=== PATIENT | female | born 1955 | race Caucasian/White ===

== ENCOUNTER → 2021-01-26 | Outpatient (CLI) | payer OTHER | LOC: HEART CORB 10:30 | DX: R07.2 Precordial pain (principal); R06.02 Shortness of breath; I11.9 Hypertensive heart disease without heart failure; J44.9 Chronic obstructive pulmonary disease, unspecified; I08.1 Rheumatic disorders of both mitral and tricuspid valves; I27.20 Pulmonary hypertension, unspecified; I73.9 Peripheral vascular disease, unspecified; E78.5 Hyperlipidemia, unspecified; R94.31 Abnormal electrocardiogram [ECG] [EKG]; Z95.820 Peripheral vascular angioplasty status with implants and grafts; Z99.81 Dependence on supplemental oxygen; E78.00 Pure hypercholesterolemia, unspecified; I25.10 Atherosclerotic heart disease of native coronary artery without angina pectoris; M81.0 Age-related osteoporosis without current pathological fracture; Z79.899 Other long term (current) drug therapy; Z87.891 Personal history of nicotine dependence | CPT/HCPCS: 78452; 93306; A9502; J2785 ==

== ENCOUNTER 2021-11-25 15:58 | Emergency (ER) | payer OTHER ==
[2021-11-25] MEDS ORDERED: CEPHALEXIN500 MG PO (18:46)
[2021-11-27] MEDS ORDERED: ENDOCET 5-3251 EACH PO (15:01)
== END 2021-11-25 19:26 | disposition home or self-care (01) ==
LOC: ER1 15:58
DX: S81.812A Laceration without foreign body, left lower leg, initial encounter (principal); I11.9 Hypertensive heart disease without heart failure; J44.9 Chronic obstructive pulmonary disease, unspecified; F17.200 Nicotine dependence, unspecified, uncomplicated; Z95.5 Presence of coronary angioplasty implant and graft; Z88.1 Allergy status to other antibiotic agents; Z23 Encounter for immunization; W01.0XXA Fall on same level from slipping, tripping and stumbling without subsequent striking against object, initial encounter
CPT/HCPCS: 12006; 73590; 90471; 90714; 96374; 96375; 99283; J2270; J2405